=== PATIENT | female | born 1990 ===

== ENCOUNTER 2017-10-13 19:48 | Emergency (ER) | payer OTHER ==
[2017-10-13 20:22] VITALS: BP 123/75; PULSE 81; RESP 18; TEMP 98.1; O2SAT 99
[2017-10-13] MEDS ORDERED: DiphenhydrAMINE 50 mg/ml Inj IVP STA (20:48)
--- NOTE | 2017-10-13 21:33 | ED PDOC ---
HPI:Nausea, Vomiting, Diarrhea Time Seen by Provider: 10/13/17 20:30 Chief Complaint (Nursing): Headache Chief Complaint (Provider): Vomiting and Nausea History Per: Patient History/Exam Limitations: no limitations Onset/Duration Of Symptoms: Days (x1) Current Symptoms Are (Timing): Still Present Associated Symptoms: Nausea, Vomiting. denies: Diarrhea, Constipation, Urinary Symptoms Exacerbating Factors: None Alleviating Factors: None Additional Complaint(s): 27 year old female presents to the emergency department complaining of vomiting and nausea. Patient states that she has also been having a headache since yesterday which she describes as a diffuse pressure. She reports that she has been having a similar headache for about 2 months however today it was associated with nausea and 2 episodes of bloody non bilious vomit. Patient has taken motrin which has offered her no relief. Denies blurry vision, focal weakness, change in speech or gait, diarrhea, constipation, urinary symptoms. Patient is currently on her menstrual period. NO FAMILY PROVIDER Abnormal Vaginal Bleeding: No Last Menstral Period: currenlty on menstrual period Past Medical History Reviewed: Historical Data, Nursing Documentation, Vital Signs Vital Signs: Last Vital Signs Temp 98.1 F 10/13/17 20:19 Pulse 81 10/13/17 20:19 Resp 18 10/13/17 20:19 BP 123/75 10/13/17 20:19 Pulse Ox 99 10/13/17 20:19 - Medical History PMH: No Chronic Diseases - Surgical History Surgical History: No Surg Hx - Family History Family History: States: Unknown Family Hx - Social History Current smoker - smoking cessation education provided: No Alcohol: None Drugs: Denies - Home Medications Home Medications: Ambulatory Orders Medication Instructions Recorded Acetaminophen/Butalbital/Caf 1 tab PO TID PRN #20 tab 10/13/17 [Fioricet] Ondansetron ODT [Zofran ODT] 1 odt PO Q6 PRN #20 odt 10/13/17 - Allergies Allergies/Adverse Reactions: Allergies Allergy/AdvReac Type Severity Reaction Status Date / Time No Known Allergies Allergy Verified 10/13/17 20:39 Review of Systems ROS Statement: Except As Marked, All Systems Reviewed And Found Negative Eyes: Negative for: Vision Change Gastrointestinal: Positive for: Nausea, Vomiting. Negative for: Diarrhea, Constipation Neurological: Positive for: Headache, Other (no change in gait). Negative for: Change in Speech Physical Exam - Reviewed Nursing Documentation Reviewed: Yes Vital Signs Reviewed: Yes - Physical Exam Appears: Positive for: Non-toxic, No Acute Distress Head Exam: Positive for: NORMAL INSPECTION Skin: Positive for: Normal Color, Warm, Dry. Negative for: Rash Eye Exam: Positive for: Normal appearance, EOMI, PERRL. Negative for: Nystagmus ENT: Positive for: Normal ENT Inspection. Negative for: Nasal Congestion, Tonsillar Exudate, Tonsillar Swelling Neck: Positive for: Normal, Painless ROM, Supple Cardiovascular/Chest: Positive for: Regular Rate, Rhythm, Chest Non Tender. Negative for: Tachycardia Respiratory: Positive for: Normal Breath Sounds. Negative for: Rales, Rhonchi, Wheezing, Respiratory Distress Gastrointestinal/Abdominal: Positive for: Normal Exam, Bowel Sounds, Soft. Negative for: Tenderness, Mass, Guarding, Rebound Back: Positive for: Normal Inspection. Negative for: L CVA Tenderness, R CVA Tenderness Extremity: Positive for: Normal ROM. Negative for: Tenderness, Deformity, Swelling Neurologic/Psych: Positive for: Alert, Oriented, Gait - Laboratory Results Result Diagrams: 10/13/17 21:30 10/13/17 21:30 - ECG O2 Sat by Pulse Oximetry: 99 (RA) Pulse Ox Interpretation: Normal Medical Decision Making Medical Decision Makin Initial Impression 27 year old female presenting with headache with benign exam Initial Plan: * CT Head w/o Contrast * CMP * Magnesium * Phosphorous * Thyroid Stimulating * Upreg * Udip * CBC * Benadryl 25mg IVP * Reglan 10mg IV * Toradol 15mg IVP * Tylenol 975 mg PO * Reevaluation Labs unremarkable. Accession No. : [id number] Patient Name / ID : KILEY BROWN Y / [id number] Exam Date : 10/13/2017 21:40:14 ( Approved ) Study Comment : Sex / Age : F / 27Y Creator : Salazar Hancock MD Dictator : [employer] Teacher : [employer] Foreman : Salazar Hancock MD Approver2 : Report Date : 10/13/2017 22:41:00 My Comment : [facility] Division of Radiology [address] [place] [address] Tel. no. Patient Name: KEVIN PLUNKETT Pt. Address: [address] [place] [address] Rec #: [id number] [place] [address]: New ALEMAN, Korin Toth Pt CELL Order Location: [facility] : 1990 Female Age: 27 Order #: [id number] Reason for exam: headache nausea vomiting CT Scan HEAD W/O CONTRAST Exam Date: 10/13/17 This imaging exam was performed at [facility] EXAM: CT Head Without Intravenous Contrast CLINICAL HISTORY: 27 years old, female; Pain; Headache and other: Nausea vomiting; Additional info: Headache nausea vomiting TECHNIQUE: Axial computed tomography images of the head/brain without intravenous contrast. All CT scans at this facility use one or more dose reduction techniques, viz.: automated exposure control; ma/kV adjustment per patient size (including targeted exams where dose is matched to indication; i.e. head); or iterative reconstruction technique. Coronal and sagittal reformatted images were created and reviewed. COMPARISON: No relevant prior studies available. FINDINGS: Brain: No intracranial hemorrhage. No mass. No definite edema. Ventricles: No hydrocephalus. Bones/joints: No acute fracture. Soft tissues: Unremarkable. Sinuses: No acute sinusitis. Mastoid air cells: No mastoid effusion. Orbits: Unremarkable as visualized. IMPRESSION: 1. No definite acute intracranial abnormality. Dictated By: Salazar Hancock MD Dictated Date/Time: 10/13/172240 Signed By: Salazar Hancock MD Date Signed: 2240 Transcribed By: MITCH Transcribe Date/Time : 10/13/172240 ACYP02/LYNSEY 2244 On reeval pt feels better. No vomiting in ER. Stable for dc with clinic follow up. pt findings and plan of care. Documented by Graciela Kan acting as a scribe for Korin Wolff MD. All medical record entries made by the Scribe were at my direction and personally dictated by me. I have reviewed the chart and agree that the record accurately reflects my personal performance of the history, physical exam, medical decision making, and the department course for this patient. I have also personally directed, reviewed, and agree with the discharge instructions and disposition. Disposition - Clinical Impression Clinical Impression: Headache, Nausea & vomiting Counseled Patient/Family Regarding: Studies Performed, Diagnosis, Need For Followup, Rx Given - Disposition Referrals: [facility] [Outside] Disposition: Routine/Home Disposition Time: 23:32 Condition: IMPROVED Prescriptions: Acetaminophen/Butalbital/Caf [Fioricet] 1 tab PO TID PRN #20 tab PRN Reason: Headache Ondansetron ODT [Zofran ODT] 1 odt PO Q6 PRN #20 odt PRN Reason: Nausea/Vomiting Instructions: Nausea and Vomiting, Adult, Headache, Adult (DC) Print Language: SAMI
[2017-10-13 21:44] LABS: BASO # 0.1 K/uL (0.0-0.2); BASO % 0.5 % (0.0-2.0); EOS # 0.2 K/uL (0.0-0.7); EOS % 1.8 % (0.0-4.0); HEMOGLOBIN 12.4 g/dL (12.0-16.0); LYMPH # 3.3 K/uL (1.0-4.3); LYMPH % 32.5 % (20.0-40.0); MEAN CELL VOLUME 82.9 fl (81.0-99.0); MEAN CORPUSCULAR HEMOGLOBIN 27.3 pg (27.0-31.0); MEAN CORPUSCULAR HGB CONC 32.9 g/dL (33.0-37.0); MEAN PLATELET VOLUME 9.4 fl (7.2-11.7); MONO # 0.7 K/uL (0.0-0.8); MONO % 6.4 % (0.0-10.0); NEUT % 58.8 % (50.0-75.0); RBC 4.55 Mil/uL (3.80-5.20); RED CELL DISTRIBUTION WIDTH 13.9 % (11.5-14.5); WHITE BLOOD COUNT 10.3 K/uL (4.8-10.8)
[2017-10-13 21:48] LABS: ALB/GLOB RATIO 1.1 (1.0-2.1); ALBUMIN 4.1 g/dL (3.5-5.0); ALT/SGPT 109 U/L (9-52); AST/SGOT 56 U/L (14-36); BLOOD UREA NITROGEN 12 mg/dl (7-17); CALCIUM 9.3 mg/dL (8.4-10.2); GFR AFRICAN-AMERICAN > 60; GFR NON-AFRICAN AMERICAN > 60
[2017-10-13] MEDS ORDERED: DiphenhydrAMINE 50 mg/ml Inj ONE (22:01)
--- NOTE | 2017-10-13 22:42 | CT ---
EXAM: CT Head Without Intravenous Contrast CLINICAL HISTORY: 27 years old, female; Pain; Headache and other: Nausea vomiting; Additional info: Headache nausea vomiting TECHNIQUE: Axial computed tomography images of the head/brain without intravenous contrast. All CT scans at this facility use one or more dose reduction techniques, viz.: automated exposure control; ma/kV adjustment per patient size (including targeted exams where dose is matched to indication; i.e. head); or iterative reconstruction technique. Coronal and sagittal reformatted images were created and reviewed. COMPARISON: No relevant prior studies available. FINDINGS: Brain: No intracranial hemorrhage. No mass. No definite edema. Ventricles: No hydrocephalus. Bones/joints: No acute fracture. Soft tissues: Unremarkable. Sinuses: No acute sinusitis. Mastoid air cells: No mastoid effusion. Orbits: Unremarkable as visualized. IMPRESSION: 1. No definite acute intracranial abnormality.
== END 2017-10-14 00:05 | disposition home or self-care (01) ==
LOC: H.ER 19:48
DX: R11.2 Nausea with vomiting, unspecified (principal); R51 Headache
CPT/HCPCS: 70450; 80053; 81025; 83735; 84100; 84443; 85025; 96374; 96375; 99285; J1200; J1885; J2765